=== PATIENT | female | born 1960 | race Two or more races ===

== ENCOUNTER 2022-12-21 07:31 | Outpatient (CLI) | payer OTHER | END 2022-12-21 07:34 | disposition home or self-care (01) | LOC: NUCLEAR 07:31 | PROVIDERS: ATTEND Internal Medicine Hematology & Oncology | DX: C09.1 Malignant neoplasm of tonsillar pillar (anterior) (posterior) (principal) ==

== ENCOUNTER 2023-12-28 08:37 | Outpatient (CLI) | payer OTHER | END 2023-12-28 08:38 | disposition home or self-care (01) | LOC: NUCLEAR 08:37 | DX: C09.9 Malignant neoplasm of tonsil, unspecified (principal); C79.89 Secondary malignant neoplasm of other specified sites ==